=== PATIENT | male | born 1965 | race African-American/Black ===

== ENCOUNTER 2019-07-13 00:33 | Observation (INO) ==
--- OUTSIDE RECORDS SUMMARY | 2019-07-13 00:35 | External Medical Summary | Continuity of Care Document ---
:1965 Author Name Robert Vanessa Address Unavailable Unavailable , Care Team Providers Name Role Phone Unavailable Unavailable Unavailable [email or web address] [email or web address] Vanessa Unavailable [email or web address] Unavailable Unavailable Unavailable Unavailable Unavailable Problems Nasal congestion (478.19) (R09.81) Lower back pain (724.2) (M54.5) Acquired deviated nasal septum (470) (J34.2) Allergic rhinitis (477.9) (J30.9) Hypertrophy of nasal turbinates (478.0) (J34.3) Helicobacter pylori (H. pylori) infection (041.86) (A04.8) Encounter for screening colonoscopy (V76.51) (Z12.11) Renal insufficiency (593.9) (N28.9) Nephrectomy Left Lobato's esophagus (530.85) (K22.70) Gastroesophageal reflux disease (530.81) (K21.9) Chronic viral hepatitis C (070.54) (B18.2) Allergies and Adverse Reactions No Known Drug Allergies (Allergy) Medications raNITIdine HCl - 300 MG Oral Tablet; TAKE ONE TABLET B Y MOUTH TWICE DAILY Rasheeda Rice Start: 10-Jan-2016 Quantity: 60 Refills: 5 HYDROcodone-Acetaminophen 10-325 MG Oral Tablet; TAKE 1 TABLET Twice daily PRN OLIVA William Quantity: 60 Refills: 0 Cyclobenzaprine HCl - 10 MG Oral Tablet; TAKE 1 TABLET PRN OLIVA William Quantity: 30 Refills: 2 Viagra 100 MG Oral Tablet; TAKE ONE TABLET BY MOUTH NEEDED OLIVA William Start: 30-Jun-2011 Quantity: 18 Refills: 1 Procedures History of Nephrectomy Left Status: Comp leted Nephrectomy Left Immunizations Influenza On: 16-Apr-2012 11:25 Lot #: [id number], [employer]FI [employer] Family History Unknown Family Member Family history of Denial Of Any Significant Status: Active Comments: Family History Medical History Mother No pertinent family history (V49.89) (Z78.9) Status: Active Social History - Smoking Status Smoker. current status unknown Plan of Treatment Planned Observations Planned Goals not documented Results No Known Results Results not documented
--- OUTSIDE RECORDS SUMMARY | 2019-07-13 00:35 | External Medical Summary | Continuity of Care Document ---
:1965 Author Name Robert Vanessa Address Unavailable Unavailable , Care Team Providers Name Role Phone Unavailable Unavailable Unavailable Stewart BAPTISTE Unavailable [email or web address] Krystal Vanessa Unavailable [email or web address] Unavailable Unavailable Unavailable Unavailable Unavailable Problems Chronic viral hepatitis C (070.54) (B18.2) Gastroesophageal reflux disease (530.81) (K21.9) Lobato's esophagus (530.85) (K22.70) Nephrectomy Left Renal insufficiency (593.9) (N28.9) Encounter for screening colonoscopy (V76.51) (Z12.11) Hypertrophy of nasal turbinates (478.0) (J34.3) Allergic rhinitis (477.9) (J30.9) Acquired deviated nasal septum (470) (J34.2) Nasal congestion (478.19) (R09.81) Lower back pain (724.2) (M54.5) Helicobacter pylori (H. pylori) infection (041.86) (A04.8) Allergies and Adverse Reactions No Known Drug [...] Immunizations Influenza On: 16-Apr-2012 11:25 Lot #: [id number], SAN[employer]FI PA[employer]UR Family History Mother No pertinent family history (V49.89) (Z78.9) Status: Active Unknown Family Member Family history of Denial Of Any Significant Status: Active Comments: Family History Medical History Social History - Smoking Status Smoker. current status unknown Plan of Treatment Planned Observations Planned Goals not documented Results No Known Results Results not documented
[2019-07-13] MEDS ORDERED: SODIUM CHLORIDE 0.9% 1000ML 1,000 ML IV SCH ×2 (01:00→04:15)
--- NOTE | 2019-07-13 01:14 | Emergency Department Note ---
History of Present Illness General Chief complaint: Seizure Stated complaint: Possible seizure History of Present Illness Maximum Pain Intensity: 8 This 54-year-old presents to the ER complaining of syncope and possible seizure Location: Generalized Quality: Weak Severity: Moderate Duration: Tonight Timing: Patient was sitting at the table and next thing he knew he was on the gr ound Context: was concerned and brought him in Modifying factors: better with nothing; worse with nothing Patient states he has been weak all week he is also had a productive cough. Patient states he is healthy with no real medical problems. Patient states he was just sitting and next thing he knew he was on the ground. He does not recall the events. He complains of some headache and neck pain. Patient denies chest pain, dyspnea, abdominal pain, fever, chills, localized weakness. No history of seizures. No heart disease. I also spoke to the who states that patient collapsed on the ground from the chair and shook for a minute or 2 and then was confused for a few minutes. He was not incontinent. No known history of seizures. No alcohol or drug use. Home Medications Home Medications Medication Instructions Recorded Confirmed Type quetiapine 150 mg PO HS 07/13/19 07/13/19 History topiramate 50 mg PO BID 07/13/19 07/13/19 History Allergies Allergy/AdvReac Type Severity Reaction Status Date / Time No Known Allergies Allergy NONE Unverified 07/13/19 00:46 Past Med/Surg History Medical History (Updated 07/13/19 @ 04:13 by Ilan Car MD) Chronic kidney disease, stage III (moderate) Lumbar degenerative disc disease Social History Preferred Language: Malian Feels Safe at Home: Yes Smoking Status: Former smoker Review of Systems A total of 10 systems reviewed and were otherwise negative Physical Exam Vital Signs Vital Signs - 24 hr 07/13/19 00:35 07/13/19 01:02 07/13/19 01:35 Temperature 36.8 C Temperature Source Oral Pulse Rate 72 Pulse Rate [Apical] 63 Pulse Rhythm [Apical] Respiratory Rate 16 18 Respiratory Effort / Characteristics Non-Labored Spontaneous Respiratory Depth Normal Blood Pressure 131/84 Blood Pressure [Right Arm] 135/91 Blood Pressure Mean 99 Blood Pressure Mean [Right Arm] 105 Blood Pressure Position [Right Arm] Sitting Pulse Oximetry 97 98 96 Oxygen Delivery Method Room Air Room Air Room Air Sepsis Recent Fever Within 48 Hours No Sepsis New/Unexplained Change in Mental Status No Sepsis Action Taken by Nursing No Action Required 07/13/19 03:26 07/13/19 04:22 Temperature Temperature Source Pulse Rate 62 Pulse Rate [Apical] 72 Pulse Rhythm [Apical] Regular Respiratory Rate 18 18 Respiratory Effort / Characteristics Non-Labored Spontaneous Respiratory Depth Normal Blood Pressure 136/82 Blood Pressure [Right Arm] 138/95 Blood Pressure Mean Blood Pressure Mean [Right Arm] 109 Blood Pressure Position [Right Arm] Lying Pulse Oximetry 96 98 Oxygen Delivery Method Room Air Room Air Sepsis Recent Fever Within 48 Hours Sepsis New/Unexplained Change in Mental Status Sepsis Action Taken by Nursing VITALS: Vitals are noted on the nurse's note and reviewed by myself. Vital signs stable. GENERAL: Pleasant male, in no acute distress, nondiaphoretic, well-developed well-nourished. SKIN: The skin was without rashes, erythema, edema, or bruising. There is no tenting of the skin. Capillary reflex less than 2 seconds. HEAD: Normocephalic atraumatic. EARS: External auditory canals clear, tympanic membranes pearly [place] without erythema or effusion bilaterally. EYES: Pupils equal round and reactive to light and accommodation. Conjunctivae without injection, sclerae without icterus. Extraocular movements intact. NOSE: Patent, turbinates without inflammation or discharge. MOUTH: Mucous membranes moist. Pharynx without erythema or exudate. Uvula midline. Airway patent. Tongue does not deviate. NECK: Supple without nuchal rigidity. No lymphadenopathy. No thyromegaly. Cervical spine is nontender. No JVD. HEART: Regular rate and rhythm LUNGS: Clear to auscultation bilaterally without wheezes, rales or rhonchi. No retractions or accessory muscle use. ABDOMEN: Positive bowel sounds x 4. Normal tympanic percussion. Soft, nontender, without masses or organomegaly. Caal sign negative. No guarding or rebound tenderness. No CVA tenderness MUSCULOSKELETAL: No muscle atrophy, erythema, or edema noted. 5 out of 5 strength throughout NEURO: Patient was alert and oriented to person place and time. Normal sensa tion to light and sharp touch. No focal neurological deficits. Cranial nerves II through XII grossly intact. No pronator drift. Cerebellar exam intact. Course Administered Medications Discontinued Medications Sodium Chloride (Nss 1000ml) 1,000 mls @ 999 mls/hr IV .Q1H1M JAMIE Stop: 07/13/19 02:00 Last Infusion: 07/13/19 02:48 Dose: 0 mls/hr Documented by: [id number] Admin: 07/13/19 01:33 Dose: 999 mls/hr Documented by: [id number] Medical Decision Making Medical Records Attestation: I reviewed the patient's medical records. Home Medications Current Medication List: was personally reviewed by me Laboratory Data Attestation: I reviewed the patient's lab results. Result diagrams: 07/13/19 01:17 07/13/19 01:17 Lab Results 07/13/19 07/13/19 07/13/19 Range/Units 01:17 01:17 03:20 WBC 7.79 (4.8-10.8) K/uL RBC 4.36 L (4.7-6.1) M/uL Hgb 13.9 L (14.0-18.0) g/dL Hct 40.1 L (42-52) % MCV 92.0 (80-100) fL MCH 31.9 (25-34) pg MCHC 34.7 (32-36) g/dL RDW Std Deviation 45.8 (36.4-46.3) fL RDW Coeff of Akilah 13.6 (11.5-14.5) % Plt Count 235 (130-400) K/uL MPV 9.7 (7.4-10.4) fL Immature Gran % (Auto) 0.4 % Neut % (Auto) 46.2 % Lymph % (Auto) 40.8 % Crane % (Auto) 8.1 % Eos % (Auto) 4.1 % Baso % (Auto) 0.4 % Immature Gran # (Auto) 0.03 H (0.00-0.02) K/uL Neut # (Auto) 3.60 (1.4-6.5) K/uL Lymph # (Auto) 3.18 (1.2-3.4) K/uL Crane # (Auto) 0.63 H (0.11-0.59) K/uL Eos # (Auto) 0.32 (0-0.5) K/uL Baso # (Auto) 0.03 (0-0.2) K/uL Sodium 138 (136-145) mmol/L Potassium 3.8 (3.5-5.1) mmol/L Chloride 108 H (98-107) mmol/L Carbon Dioxide 26 (21-32) mmol/L Anion Gap 4.0 (3-11) BUN 22 H (7-18) mg/dl Creatinine 1.83 H (0.6-1.4) mg/dl Est Cr Clr Drug Dosing 58.7 ml/min Est GFR ( Amer) 47.1 Est GFR (Non-Af Amer) 40.6 BUN/Creatinine Ratio 11.9 (10-20) Glucose 102 H (70-99) mg/dl Calcium 8.7 (8.5-10.1) mg/dl Magnesium 2.1 (1.8-2.4) mg/dl Total Bilirubin 0.3 (0.2-1) mg/dl AST 22 (15-37) U/L ALT 38 (12-78) U/L Alkaline Phosphatase 91 (45-117) U/L Total Creatine Kinase 354 H (39-308) U/L Troponin I < 0.015 (0-0.045) ng/ml Total Protein 8.1 (6.4-8.2) gm/dl Albumin 3.5 (3.4-5.0) gm/dl Globulin 4.6 H (2.5-4.0) gm/dl Albumin/Globulin Ratio 0.8 L (0.9-2) Lipase 87 (73-393) U/L TSH 0.396 (0.300-4.500) uIu/ml Urine Color Yellow Urine Appearance Clear (Clear) Urine pH 5.5 (4.5-7.5) Ur Specific [place] 1.022 (1.000-1.030) Urine Protein 1+ H (Negative) Urine Glucose (UA) Negative (Negative) Urine Ketones Negative (Negative) Urine Blood Negative (Negative) Urine Nitrite Negative (Negative) Urine Bilirubin Negative (Negative) Urine Urobilinogen Negative (Negative) Ur Leukocyte Esterase Negative (Negative) Urine WBC (Auto) 1-5 (0-5) /hpf Urine RBC (Auto) 0-4 (0-4) /hpf U Hyaline Cast (Auto) 1-5 (0-5) /lpf U Epithel Cells (Auto) 5-10 H (0-5) /lpf Urine Bacteria (Auto) Negative (Negative) Imaging Data Attestation: I personally reviewed and interpreted this imaging study as follows: MDM Narrative Prior records/ancillary studies reviewed. Triage Nursing notes reviewed. Additional history obtained from family. The patient's history was concerning for syncope. Differential diagnosis: Etiologies such as vasovagal event, seizure, infection, hypoglycemia, electrolyte abnormalities, cardiac sources, intracerebral event, toxicologic, neurologic, as well as others were entertained. Physical examination: As above ER treatment provided: IV hydration with normal saline On reassessment the patient felt better. Diagnostics interpretation by me: ECG: Ordered for syncope EKG: Normal sinus, normal intervals, no acute ST-T wave changes. Impression normal sinus rhythm interpreted by myself I think arrhythmia is unlikely. EKG shows normal sinus rhythm with no interval abnormalities such as QT prolongation or WPW. There are no findings to suggest Brugada syndrome. Cardiac monitoring in the emergency department reveals no tachycardic or bradycardic dysrhythmia. Hypertrophic cardiomyopathy was considered but there are no clear historical elements pointing toward this. EKG is not suggestive. The QRS voltage is not extremely large and there are no suggestive Q waves. The labs revealed mild anemia, creatinine 1.8. Creatinine 2 years ago was 1.6. Negative troponin, euthyroid Imaging studies: CT C SPINE: FINDINGS: No fracture or subluxations are noted. The vertebral body heights, disc spaces and alignment are preserved. No prevertebral soft tissue swelling. Right upper lung posterior subpleural calcified granuloma. Tonsillar calcification from previous infections IMPRESSION: Normal CT scan of the cervical spine. Radiologist: Jayleen Rojas MD CT HEAD: FINDINGS: No intracranial hemorrhage, abnormal intra- or extra-axial collections or parenchymal lesions are seen. The shape and configuration of the cortical sulci, basal cisterns and ventricles are within normal limits. The dunn-white differentiation is preserved. No evidence of mass effect, midline shift, or edema. The osseous structures are unremarkable. Mild ethmoid mucosal thickening. IMPRESSION: Normal non-contrast CT scan of the head. Radiologist: Jayleen Rojas MD Consultation: A consultation was placed with Dr. Smith, hospitalist. The case was discussed and diagnostics were reviewed. The patient was evaluated in the ER for further treatment. This appears to be consistent with syncope with possible seizure. Patient had no prodromal symptoms. Medicine was consulted. No acute findings in the above work-up. By the evaluation outlined above emergent etiologies such as infection, hypoglycemia, electrolyte abnormalities, toxicologic, as well as others were deemed relatively unlikely. The pt informed about the findings as listed above. All questions were answered and pleased with the treatment. Case reviewed with my attending The chart was completed utilizing [employer] Speech voice recognition software. Grammatical errors, random word insertions, pronoun errors, and incomplete sentences are an occassional consequence of this system due to software limitations, ambient noise, and hardware issues. Any formal questions or concerns about the content, text, or information contained within the body of this dictation should be directly addressed to the physician occupational therapist's assistant for clarification. Impression & Plan Atypical syncope Discharge Plan Visit Data Chief Complaint: Seizure Stated Complaint: Possible seizure ED Provider: Nuvia Guzmán ED Midlevel Provider: Sherin Almeida Discharge Problem: Atypical syncope Patient Disposition: Being Evaluated by Hospitalist Condition: Good Discharge Instructions Interventions: ED Discharge Assessment Last Done: 07/13/19 04:22 Forms Stand Alone Forms: My [facility] [employer] Prescriptions Prescriptions: No Action quetiapine 100 mg tablet 150 mg PO HS RF: 0 topiramate 50 mg tablet 50 mg PO BID RF: 0 Referrals Referrals: Alvarado Rice MD [Primary Care Provider] -
[2019-07-13 01:26] LABS: Basophils # (auto) 0.03 K/uL (0-0.2); Basophils % (auto) 0.4 %; Eosinophils # (auto) 0.32 K/uL (0-0.5); Eosinophils % (auto) 4.1 %; Hematocrit (blood only) 40.1 % (42-52); Hemoglobin 13.9 g/dL (14.0-18.0); Immature Granulocytes # (auto) 0.03 K/uL (0.00-0.02); Immature Granulocytes % (auto) 0.4 %; Lymphocytes # (auto) 3.18 K/uL (1.2-3.4); Lymphocytes % (auto) 40.8 %; Mean Corpuscular Hemoglobin 31.9 pg (25-34); Mean Corpuscular Hgb Conc 34.7 g/dL (32-36); Mean Platelet Volume 9.7 fL (7.4-10.4); Monocytes # (auto) 0.63 K/uL (0.11-0.59); Monocytes % (auto) 8.1 %; Neutrophils % (auto) 46.2 %; Platelet Count 235 K/uL (130-400); RDW Coefficient of Variation 13.6 % (11.5-14.5); RDW Standard Deviation 45.8 fL (36.4-46.3); Red Blood Count 4.36 M/uL (4.7-6.1); White Blood Count 7.79 K/uL (4.8-10.8)
[2019-07-13 01:42] LABS: Alanine Aminotransferase 38 U/L (12-78); Albumin Level 3.5 gm/dl (3.4-5.0); Aspartate Aminotransferase 22 U/L (15-37); BUN Creatinine Ratio 11.9 (10-20); Blood Urea Nitrogen 22 mg/dl (7-18); Calcium 8.7 mg/dl (8.5-10.1); Carbon Dioxide 26 mmol/L (21-32); Chloride 108 mmol/L (98-107); Creatinine Clr Calc Pharmacy 58.7 ml/min; Est GFR (African American) 47.1; Est GFR (Non-African American) 40.6; Glucose 102 mg/dl (70-99); Lipase 87 U/L (73-393); Magnesium 2.1 mg/dl (1.8-2.4); Potassium 3.8 mmol/L (3.5-5.1); Sodium 138 mmol/L (136-145)
[2019-07-13 01:53] LABS: Albumin Globulin Ratio 0.8 (0.9-2); Alkaline Phosphatase 91 U/L (45-117); Bilirubin,Total 0.3 mg/dl (0.2-1); Creatine Kinase 354 U/L (39-308); Globulin 4.6 gm/dl (2.5-4.0); Thyroid Stimulating Hormone 0.396 uIu/ml (0.300-4.500); Total Protein 8.1 gm/dl (6.4-8.2); Troponin I < 0.015 ng/ml (0-0.045)
[2019-07-13 03:46] LABS: Appearance Urine Clear (Clear); Bacteria Urine Automated Negative (Negative); Bilirubin Urine Negative (Negative); Blood Urine Negative (Negative); Color Urine Yellow; Glucose Urine UA Negative (Negative); Ketones Urine Negative (Negative); Leukocyte Esterase Urine Negative (Negative); Nitrite Urine Negative (Negative); Protein Urine 1+ (Negative); RBC Urine Automated 0-4 /hpf (0-4); Specific Gravity Urine 1.022 (1.000-1.030); Urobilinogen Urine Negative (Negative); pH Urine 5.5 (4.5-7.5)
--- NOTE | 2019-07-13 04:19 | History & Physical Report ---
Date of Service July 13, 2019 Assessment & Plan (1) Syncope and collapse: Admit to monitored bed to follow for possible arrhythmia. CT of head was negative, CT cervical spine was negative, and chest x-ray is negative. We will order MRI brain without contrast. Order EEG. Order complete echocardiogram. Order neurochecks. Consult neurology Present on Admission?: Yes (2) GERD (gastroesophageal reflux disease): No recent symptoms, and on no meds at this time. Present on Admission?: Yes (3) Chronic kidney disease, stage III (moderate): No reference labs available. Patient upon admission had a creatinine 1.83. CK is mildly elevated at 354. May have a mild element of rhabdomyolysis, repeat laboratories prior to discharge Will hydrate gently with normal saline, and follow-up laboratories. He will follow-up with Dr. Rice from nephrology after discharge from hospital Present on Admission?: Yes (4) Lumbar degenerative disc disease: Lumbar degenerative disc disease with intermittent radiculopathy- Continue Topamax and Seroquel at outpatient doses. Present on Admission?: Yes History of Present Illness Chief Complaint: The patient presents to the emergency department after a syncopal episode while sitting at a stool while at home, his significant other reports that he was out for about 2 minutes, and when he awoke, it took several more minutes for him to become completely aware of his surroundings. He did not have loss of bowel or bladder control. Has not had previous occurrences of this. Primary Care Provider: Alvarado Rice MD The patient is a 54-year-old male with a past medical history including chronic kidney disease stage III, GERD, chronic back pain and neuropathy, who presents emergency department with the above complaint. He has not had any recent travels or sick exposures. He denies any recent change in activity pattern or sleep pattern. He denies any palpitations. Work-up in the emergency department included imaging studies with normal chest x-ray, normal CT of the head and normal CT of cervical spine. Allergies Allergy/AdvReac Type Severity Reaction Status Date / Time No Known Allergies Allergy NONE Unverified 07/13/19 00:46 Home Medications Home Medications Medication Instructions Recorded Confirmed Type quetiapine 150 mg PO HS 07/13/19 07/13/19 History topiramate 50 mg PO BID 07/13/19 07/13/19 History Past Med/Surg History Social History Preferred Language: Yakut Feels Safe at Home: Yes Smoking Status: Former smoker Review of Systems Review of Systems: The patient denies chest pain, palpitations, shortness of breath, dyspnea on exertion, cough, lower extremity swelling, sore throat, fevers, chills, sweats, nausea, vomiting, diarrhea , constipation, abdominal pain, pelvic pain, blood in urine or stool, dysuria, urinary frequency or urgency, rash, abnormal bruising or bleeding, imbalance, focal or generalized weakness, numbness or tingling in arms or legs, generalized arthralgias or myalgias, neck pain, or night sweats. The review of systems is otherwise negative other than for that already noted above, and at least 10 systems have been reviewed. Physical Exam Physical Exam: The patient is awake, alert and oriented 3, well developed and well nourished, normocephalic and atraumatic, lying in bed and in no acute distress. HEENT--PERRL, EOMI, mucous membranes and oropharynx normal. Neck--supple. No JVD. No bruits. Thyroid normal, trachea midline, no adenopathy. Heart--normal S1 and S2. No murmurs, rubs or gallops. Lungs--clear bilaterally, no respiratory distress, no accessory muscle use. Abdomen--normal bowel sounds and soft. Nontender. Nondistended. Obese. Extremities--no cyanosis or clubbing. No edema. There are good distal pulses b/l. Dermatologic--normal skin turgor, normal color, no abnormal lymph nodes, no rash. Neurologic--cranial nerves II through XII grossly intact. Rheumatologic--normal range of motion. Psychiatric--normal affect. Results & Data Vital Signs (Past 12 Hours) Vital Signs Temp Pulse Pulse Resp BP BP Pulse Ox 07/13/19 03:26 72 18 138/95 96 07/13/19 01:35 63 18 135/91 96 07/13/19 01:02 98 07/13/19 00:35 98.2 F 72 16 131/84 97 Laboratory Results Laboratory Results WBC 7.79 K/uL (4.8-10.8) 07/13/19 01:17 RBC 4.36 M/uL (4.7-6.1) L 07/13/19 01:17 Hgb 13.9 g/dL (14.0-18.0) L 07/13/19 01:17 Hct 40.1 % (42-52) L 07/13/19 01:17 MCV 92.0 fL (80-100) 07/13/19 01:17 MCH 31.9 pg (25-34) 07/13/19 01:17 MCHC 34.7 g/dL (32-36) 07/13/19 01:17 RDW Std Deviation 45.8 fL (36.4-46.3) 07/13/19 01:17 RDW Coeff of Akilah 13.6 % (11.5-14.5) 07/13/19 01:17 Plt Count 235 K/uL (130-400) 07/13/19 01:17 MPV 9.7 fL (7.4-10.4) 07/13/19 01:17 Immature Gran % (Auto) 0.4 % 07/13/19 01:17 Neut % (Auto) 46.2 % 07/13/19 01:17 Lymph % (Auto) 40.8 % 07/13/19 01:17 Cameron % (Auto) 8.1 % 07/13/19 01:17 Eos % (Auto) 4.1 % 07/13/19 01:17 Baso % (Auto) 0.4 % 07/13/19 01:17 Immature Gran # (Auto) 0.03 K/uL (0.00-0.02) H 07/13/19 01:17 Neut # (Auto) 3.60 K/uL (1.4-6.5) 07/13/19 01:17 Lymph # (Auto) 3.18 K/uL (1.2-3.4) 07/13/19 01:17 Cameron # (Auto) 0.63 K/uL (0.11-0.59) H 07/13/19 01:17 Eos # (Auto) 0.32 K/uL (0-0.5) 07/13/19 01:17 Baso # (Auto) 0.03 K/uL (0-0.2) 07/13/19 01:17 Sodium 138 mmol/L (136-145) 07/13/19 01:17 Potassium 3.8 mmol/L (3.5-5.1) 07/13/19 01:17 Chloride 108 mmol/L (98-107) H 07/13/19 01:17 Carbon Dioxide 26 mmol/L (21-32) 07/13/19 01:17 Anion Gap 4.0 (3-11) 07/13/19 01:17 BUN 22 mg/dl (7-18) H 07/13/19 01:17 Creatinine 1.83 mg/dl (0.6-1.4) H 07/13/19 01:17 Est Cr Clr Drug Dosing 58.7 ml/min 07/13/19 01:17 Est GFR ( Amer) 47.1 07/13/19 01:17 Est GFR (Non-Af Amer) 40.6 07/13/19 01:17 BUN/Creatinine Ratio 11.9 (10-20) 07/13/19 01:17 Glucose 102 mg/dl (70-99) H 07/13/19 01:17 Calcium 8.7 mg/dl (8.5-10.1) 07/13/19 01:17 Magnesium 2.1 mg/dl (1.8-2.4) 07/13/19 01:17 Total Bilirubin 0.3 mg/dl (0.2-1) 07/13/19 01:17 AST 22 U/L (15-37) 07/13/19 01:17 ALT 38 U/L (12-78) 07/13/19 01:17 Alkaline Phosphatase 91 U/L (45-117) 07/13/19 01:17 Total Creatine Kinase 354 U/L (39-308) H 07/13/19 01:17 Troponin I < 0.015 ng/ml (0-0.045) 07/13/19 01:17 Total Protein 8.1 gm/dl (6.4-8.2) 07/13/19 01:17 Albumin 3.5 gm/dl (3.4-5.0) 07/13/19 01:17 Globulin 4.6 gm/dl (2.5-4.0) H 07/13/19 01:17 Albumin/Globulin Ratio 0.8 (0.9-2) L 07/13/19 01:17 Lipase 87 U/L (73-393) 07/13/19 01:17 TSH 0.396 uIu/ml (0.300-4.500) 07/13/19 01:17 Urine Color Yellow 07/13/19 03:20 Urine Appearance Clear (Clear) 07/13/19 03:20 Urine pH 5.5 (4.5-7.5) 07/13/19 03:20 Ur Specific [place] 1.022 (1.000-1.030) 07/13/19 03:20 Urine Protein 1+ (Negative) H 07/13/19 03:20 Urine Glucose (UA) Negative (Negative) 07/13/19 03:20 Urine Ketones Negative (Negative) 07/13/19 03:20 Urine Blood Negative (Negative) 07/13/19 03:20 Urine Nitrite Negative (Negative) 07/13/19 03:20 Urine Bilirubin Negative (Negative) 07/13/19 03:20 Urine Urobilinogen Negative (Negative) 07/13/19 03:20 Ur Leukocyte Esterase Negative (Negative) 07/13/19 03:20 Urine WBC (Auto) 1-5 /hpf (0-5) 07/13/19 03:20 Urine RBC (Auto) 0-4 /hpf (0-4) 07/13/19 03:20 U Hyaline Cast (Auto) 1-5 /lpf (0-5) 07/13/19 03:20 U Epithel Cells (Auto) 5-10 /lpf (0-5) H 07/13/19 03:20 Urine Bacteria (Auto) Negative (Negative) 07/13/19 03:20 Code Status & VTE Plan Code Status Full code VTE Prophylaxis Plan VTE Prophylaxis will be ordered: Yes PG Care Time/CCT Total # of Minutes Spent Total Time Spent with Patient: Total time spent is greater than 50% in coordination of care (as documented) at patient's floor/unit and/or counseling patient:
[2019-07-13] MEDS ORDERED: MAGNESIUM HYDROXIDE SUSP 30 ML UDC PO PRN (05:02)
[2019-07-13] MEDS ORDERED: GLUCOSE 40% GEL 15 GM TUBE PO PRN (05:02)
[2019-07-13] MEDS ORDERED: DEXTROSE 50% 50 ML SYRINGE IV PRN (05:02)
[2019-07-13] MEDS ORDERED: ALUMINUM/MAGNESIUM SUSP 30 ML UDC PO PRN (05:02)
[2019-07-13] MEDS ORDERED: GLUCOSE 10 TABS/TUBE PO PRN (05:02)
[2019-07-13] MEDS ORDERED: ACETAMINOPHEN 325 MG TAB PO PRN (05:02)
[2019-07-13] MEDS ORDERED: GLUCAGON FOR INJ 1 MG VIAL SQ PRN (05:02)
[2019-07-13] MEDS ORDERED: ONDANSETRON INJ 2 MG/ML 2 ML VIAL IV PRN (05:02)
[2019-07-13] MEDS ORDERED: CARBOHYDRATES FOR HYPOGLYCEMIA PO PRN (05:02)
[2019-07-13 05:15] LABS: Lyme Ab IgG w/WB Rflx Negative (Negative); Lyme Ab IgM w/WB Rflx Negative (Negative)
[2019-07-13 06:14] LABS: BUN Creatinine Ratio 11.3 (10-20); Calcium 8.5 mg/dl (8.5-10.1); Creatinine Clr Calc Pharmacy 57.5 ml/min; Est GFR (African American) 46.2; Est GFR (Non-African American) 39.8; Potassium 3.8 mmol/L (3.5-5.1)
--- NOTE | 2019-07-13 06:46 | XRay Report ---
XR chest 1V portable HISTORY: 54 years-old Male cough acute cough with syncope COMPARISON: None available TECHNIQUE: Portable AP view of the chest FINDINGS: Cardiac silhouette is upper limits of normal in size. Mild right hemidiaphragmatic elevation. Bluntin g of the left costophrenic angle with mild subsegmental left basilar densities. No pneumothorax, over t pulmonary edema or lobar airspace consolidation. Degenerative changes of the shoulders and spine. IMPRESSION: 1. Mild left costophrenic angle blunting may be secondary to atelectasis versus trace effusion. 2. No airspace consolidation typical for pneumonia. ACT 112: Negative or not required by law. The above report was generated using voice recognition software. It may contain grammatical, syntax o r spelling errors. Electronically signed by: Francisco Johnson M.D. 07/13/2019 6:45 AM
--- NOTE | 2019-07-13 07:16 | CT Scan Report ---
CT head/brain wo con CLINICAL HISTORY: 54 years-old Male with syncope, ? sz. Acute syncope with possible seizure TECHNIQUE: Multiple axial CT images of the head were obtained without contrast. A dose lowering tech nique was utilized adhering to the principles of ALARA. CT DOSE: 1128.72 mGy.cm COMPARISON: Head CT 10/15/2009. FINDINGS: No acute intracranial hemorrhage, midline shift, intracranial mass, hydrocephalus, territorial ischem ia or abnormal extra-axial collection. The calvarium is intact. Mastoid air cells are generally clear. Mild mucosal thickening of the sphen oid sinuses with moderate ethmoid sinus disease. IMPRESSION: No acute intracranial abnormality. ACT 112: Negative or not required by law. The above report was generated using voice recognition software. It may contain grammatical, syntax o r spelling errors. Electronically signed by: Francisco Johnson M.D. 07/13/2019 7:15 AM
--- NOTE | 2019-07-13 07:39 | CT Scan Report ---
CT cervical spine wo con CLINICAL HISTORY: 54 years-old Male with syncope, pain. Acute neck injury with syncope COMPARISON: CT cervical spine 04/21/2016 TECHNIQUE: Multiple axial CT images of the cervical spine were obtained without contrast. A dose low ering technique was utilized adhering to the principles of ALARA. FINDINGS: Mild multilevel spondylitic spurring and facet arthrosis. No significant disc space narrowing, acute fracture or subluxation. Evaluation of the central canal and neuroforamina is better assessed by MRI. There is suggestion of mild multilevel foraminal narrowing. No high-grade central canal stenosis marcela ntified. No prevertebral soft tissue swelling. Lung apices are clear without pneumothorax. Mild subpl eural bleb formation of the right lung apex. Calcified granuloma of the right lung apex also noted. C alcifications of the palatine tonsils. Opacification of the imaged maxillary sinuses with mild spheno id and ethmoid sinus disease. IMPRESSION: No acute cervical spine fracture or subluxation. ACT 112: Negative or not required by law. The above report was generated using voice recognition software. It may contain grammatical, syntax o r spelling errors. Electronically signed by: Francisco Johnson M.D. 07/13/2019 7:38 AM
[2019-07-13] MEDS ORDERED: TOPIRAMATE 50 MG TAB PO SCH (09:00)
--- NOTE | 2019-07-13 10:17 | Magnetic Resonance Report ---
MR brain wo con HISTORY: 54 years-old Male syncope acute syncope with headache COMPARISON: Head CT 07/13/2019 TECHNIQUE: Multiplanar multisequence MRI of the brain was obtained without the use of IV contrast. FINDINGS: There is no restricted diffusion to suggest acute or subacute infarction. Midline structures includin g the corpus callosum, brainstem, optic chiasm, pituitary and pineal glands appear unremarkable on th e sagittal T1 series. No cerebellar tonsillar herniation. Degenerative changes are noted about the im aged cervical spine. Motion degraded exam. There is no acute intracranial hemorrhage, midline shift, abnormal extra-axial collections, hydroceph alus or intracranial mass. No acute seizure focus identified. No significant T2/FLAIR signal abnormal ities of the brain parenchyma. Near area of increased FLAIR signal involving the posterior left front al lobe on image 17 series 6 demonstrates normal signal on the T1 and T2 series, likely artifactual. Mesial temporal lobes are within normal limits bilaterally. There is no pathologic blooming artifact on the T2 star series. The major flow voids at the level of the skull base appear patent. Mastoid air cells are clear. Sever e mucosal thickening of the maxillary sinuses with air-fluid levels. Moderate mucosal thickening of t he ethmoid air cells least mild mucosal thickening of the sphenoid and frontal sinuses. Skull, orbits and soft tissues are within normal limits. IMPRESSION: 1. Motion degraded exam without acute intracranial abnormality identified. 2. Severe paranasal sinus disease as above with acute maxillary sinusitis. ACT 112: Negative or not required by law. The above report was generated using voice recognition software. It may contain grammatical, syntax o r spelling errors. Electronically signed by: Francisco Johnson M.D. 07/13/2019 10:16 AM
--- NOTE | 2019-07-13 11:34 | Electroencephalogram ---
EEG Procedure Note Date of Service July 13, 2019 Start / End Times Start Time: 10:57 AM End Time: 11:17 AM Referring Physician Ilan Car MD History Seizure-like episode, syncope Home Medication List Home Medications Medication Instructions Recorded Confirmed Type quetiapine 150 mg PO HS 07/13/19 07/13/19 History topiramate 50 mg PO BID 07/13/19 07/13/19 History Inpatient Medication List Sodium Chloride (Nss 1000ml) 1,000 mls @ 80 mls/hr IV .[id number] JAMIE Stop: 08/12/19 04:14 Last Admin: 07/13/19 05:15 Dose: 80 mls/hr Documented by: [id number] Topiramate (Topamax) 50 mg PO BID [facility] Stop: 08/12/19 08:59 Last Admin: 07/13/19 09:14 Dose: Not Given Documented by: [id number] Discontinued Medications Sodium Chloride (Nss 1000ml) 1,000 mls @ 999 mls/hr IV .[id number] JAMIE Stop: 07/13/19 02:00 Last Infusion: 07/13/19 02:48 Dose: 0 mls/hr Documented by: [id number] Admin: 07/13/19 01:33 Dose: 999 mls/hr Documented by: [id number] Description This is a 21 electrode EEG with a single channel dedicated to limited EKG. The electrodes were placed in accordance with the International 10-20 system. There is a posterior dominant rhythm of 10 Hz which is symmetrically distributed and attenuates with eye opening in the latter part of the study. (Patient refused to close his eyes for the majority of the test as indicated by the technologist.) There is periodic IV artifact. There is a symmetric frontal beta rhythm observed. There is no focal slowing. No epileptiform abnormalities appreciated. Sleep not achieved. Interpretation This is a normal-appearing awake/drowsy EEG demonstrating a normal background alpha rhythm. A normal EEG does not completely exclude a diagnosis of seizure disorder and further clinical correlation may be needed. [facility] EEG Procedure Codes Indication for Procedure (1) Seizure-like activity: (2) Syncope and collapse: Neurology Neurology: 30636 EEG include record awake & drowsy
--- NOTE | 2019-07-13 12:15 | Neurology Consultation ---
Date of Consultation July 13, 2019 Assessment & Plan (1) Syncope and collapse: I suspect this patient experienced an episode of tussive syncope. There is no supportive evidence of epilepsy or seizure disorder. No further neurologic work-up in this regard is necessary at this time. (2) Sinusitis: This patient's CT of the head and brain MRI both reveal findings suggestive of moderate to severe sinusitis. His persistent coughing is likely related to this issue. He may benefit from an empiric antibiotic and cough suppressant. These medications may also mitigate future episodes of tussive syncope. However, I would defer to the hospitalist service regarding the appropriateness of these medications as I do not typically treat sinusitis. (3) Mood disorder: This patient relays a history of mood disorder which was recently evaluated by an outpatient psychiatrist in [place]. He indicates that he was recently given prescriptions for both Seroquel and Topamax by his psychiatrist. However, he has not started either of these medications yet. He indicates that his mood has been stable. I do not have a specific recommendation regarding the ongoing management of this patient's mood. H owever, it does not appear as if starting or stopping either of these medications may been a factor in his recent seizure-like episode. He may want to wait until his sinusitis is treated properly prior to starting either of these medications and should also discuss the matter with his psychiatrist as an outpatient. I have no further immediate recommendations for this patient. Please contact me if I may be of further assistance. He should not require additional neurologic outpatient follow-up. History of Present Illness Reason for Consultation: Syncope, seizure-like activity Requesting Physician: Ilan Car MD Attending Physician: Derick Caballero DO History of Present Illness The patient is a 54-year-old male who was evaluated in the emergency department late last night after an episode of loss of consciousness with associated shaking of the limbs. The episode was witnessed by his spouse and had occurred at home while he was sitting at the table. He complains of a persistent productive cough which is been present for the past week. He indicates that he had been having an episode of significant coughing with associated dizziness/lightheadedness prior to his loss of consciousness. He apparently fell to the floor and exhibited generalized shaking for about 1 minute. There was no tongue bite or incontinence. No injuries. No known history of seizure disorder or substance abuse. The patient does recall having some episodes of near syncope/dizziness in the past, potentially associated with laughter. Other than the persistent cough, no other potential triggering symptoms or issues have been identified. The patient does appear to have a prescription for Seroquel and topiramate. These medications were prescribed by a psychiatrist for ma nagement of depression and anxiety according to the patient. Yet, he indicates that he just received these prescriptions and has not started them yet. He denies taking any other medications or other substances such as decongestants, antihistamines, alcohol, or marijuana. Past medical history notable for chronic kidney disease, GERD, and lumbar disc degeneration. He has previously followed with Dr. Rice but has not seen him in a few years. A CT of the head and cervical spine were completed during his assessment in the emergency department and were unremarkable. A follow-up brain MRI was completed as well which was also unremarkable. Imaging described in further detail below. Family history noncontributory Allergies Allergy/AdvReac Type Severity Reaction Status Date / Time No Known Allergies Allergy NONE Unverified 07/13/19 00:46 Home Medications Home Medications Medication Instructions Recorded Confirmed Type quetiapine 150 mg PO HS 07/13/19 07/13/19 History topiramate 50 mg PO BID 07/13/19 07/13/19 History Patient History Medical History (Updated 07/13/19 @ 12:12 by Sandro Moss MD) Chronic kidney disease, stage III (moderate) Lumbar degenerative disc disease Social History Preferred Language: Swiss Communication Ability: Effective Account Support Rep Required: No Beliefs That Will Affect Care: None Current Living Situation: Significant Other Feels Safe at Home: Yes Smoking Status: Never smoker Hx Alcohol Use: No Hx Substance Use: No Review of Systems Constitutional: no fever and no chills Eyes: no blind spots and no diplopia Ear, Nose, Mouth, Throat: no tinnitus and no hearing loss Respiratory: as per Subjective / HPI, + cough and + chest congestion Cardiovascular: no chest pain and no palpitations Gastrointestinal: + nausea; no vomiting Genitourinary: no urinary incontinence Musculoskeletal: + back pain; no myalgia Integumentary: no rash and no lesions Neurologic: as per Subjective / HPI; no localized weakness, no loss of sensation, no tremor(s), no confusion and no memory loss Psychiatric: no depression and no anxiety Hematologic / Lymphatic: no easy bleeding and no easy bruising Physical Exam Physical Exam: The patient is a well-developed, well-nourished adult male. He is alert and fully oriented. Recent and remote memory intact. Attention and concentration are normal. Patient exhibits a normal spontaneous speech pattern as well as an age-appropriate fund of knowledge and normal comprehension of vocabulary. Visual tierney full to confrontation. Visual acuity normal. Pupils equal round reactive to light and accommodation. Eye movements normal. There is no ptosis, nystagmus, or ophthalmoplegia. Facial sensation intact. There is no facial droop or weakness. Hearing intact. Palate elevates to midline. Shoulder shrug intact. Tongue protrudes to midline. Sensation intact all mo dalities in all 4 limbs. Deep tendon reflexes are intact and symmetrical for the arms and legs. Plantar responses downgoing bilaterally. There is no dysdiadochokinesia or dysmetria [id number] or siav-tr-pigg bilaterally. Ophthalmoscopic examination reveals normal-appearing optic disks and posterior segments. No papilledema or hemorrhages. Carotid pulses normal bilaterally, no bruits to auscultation. Gait and station normal. Patient exhibits normal muscle strength and tone for all 4 limbs. No atrophy. No abnormal movements observed. Results & Data Vital Signs (Past 12 Hours) Vital Signs Temp Pulse Pulse Resp BP BP Pulse Ox 07/13/19 11:36 36.9 C 58 L 18 149/93 H 96 07/13/19 10:13 64 07/13/19 07:35 36.8 C 64 18 139/89 97 07/13/19 05:15 36.6 C 66 16 168/98 H 94 07/13/19 04:22 62 18 136/82 98 07/13/19 03:26 72 18 138/95 96 07/13/19 01:35 63 18 135/91 96 07/13/19 01:02 98 07/13/19 00:35 36.8 C 72 16 131/84 97 Laboratory Results WBC 7.79, hemoglobin 13.9, hematocrit 40.1, platelet count 235, sodium 138, potassium 3.8, BUN 21, creatinine 1.86, glucose 178, calcium 8.5, magnesium 2.1, AST 22, ALT 38, total CK 308, troponin less than 0.015, TSH 0.396., Lyme antibody screening negative. Diagnostic Findings A CT of the head is negative for hemorrhage or acute process. There is mild mucosal thickening of the sphenoid sinuses and moderate thickening of the ethmoid sinuses. I reviewed the images as well as the radiologist's interpretation of this test. A CT of the neck is negative for acute spinal fracture or subluxation. There is no evidence of high-grade central canal stenosis. There is mild multilevel for mental narrowing. I reviewed the images as well as the radiologist's int erpretation of this test. A noncontrast MRI of the brain is negative for acute process. There is evidence of severe paranasal sinus disease with acute maxillary sinusitis. Mesial temporal lobes are within normal limits bilaterally. I reviewed the images as well as the radiologist interpretation of this test. Electrocardiogram reveals a normal sinus rhythm, 65 bpm. An EEG completed this morning reveals a normal background alpha rhythm, without evidence of epileptiform abnormalities.
--- NOTE | 2019-07-13 15:10 | Discharge Summary ---
Date of Service July 13, 2019 Admission HPI Per Admitting Provider The patient is a 54-year-old male with a past medical history including chronic kidney disease stage III, GERD, chronic back pain and neuropathy, who presents emergency department with the above complaint. He has not had any recent travels or sick exposures. He denies any recent change in activity pattern or sleep pattern. He denies any palpitations. Work-up in the emergency department included imaging studies with normal chest x-ray, normal CT of the head and normal CT of cervical spine. Principal Diagnosis Syncope Discharge Exam Constitutional WD/WN, vitals as above Eyes PERRL, conjunctivae normal, anicteric sclerae Respiratory normal respiratory effort, lungs clear to auscultation + cough Cardiovascular Rate/Rhythm: regular rate and regular rhythm Heart Sounds: normal S1 and normal S2; no gallop, no murmur and no cardiac rub Gastrointestinal (Abdomen) normal bowel sounds, soft, nontender, no hepatosplenomegaly Neurologic CN's II-XI intact bilaterally, normal sensation to monofilament, moves all extremities and awake; no focal motor deficits Discharge Data Allergies Allergy/AdvReac Type Severity Reaction Status Date / Time No Known Allergies Allergy NONE Unverified 07/13/19 00:46 Consultations 07/13/19 03:24 ED Decision to Admit Stat 07/13/19 04:21 Consult Neurology Routine Ordered Studies 07/13/19 00:55 CT cervical spine wo con Urgent 07/13/19 00:56 CT head/brain wo con Urgent 07/13/19 03:58 MR brain wo con Urgent Hospital Course (1) Syncope and collapse: 54 y/o M who presented after having a fall from a stool late at night during a prolonged coughing spell. Syncope: - likely secondary to vasovagal episode, given decreased oral intake - CT head negative - CT cervical spine negative - MRI head and neck negative - EEG negative for any seizure like activity - advised patient to increase oral intake to prevent further episodes (2) Sinusitis: Total Time Total Time Spent Total Time Spent (In Minutes): <30 Discharge Plan Discharge Items Patient Disposition: Home - Self-Care Reason For Visit: SYNCOPE Discharge Diagnosis: Vasovagal Syncope Condition on Discharge: Good Activity: Per Instructions section Non-emergency contact: Primary Care Provider Call non-emergency contact if: you have any medication questions and your symptoms worsen Follow-up/Referrals: Alvarado Rice MD [Primary Care Provider] - Diet: Carb Consistent or DM2 Addtl Attending Provider Instructions: You were admitted following having a fall off of a stool last night; prior to this fall it was noticed that you were having a consistent coughing fit and had not eaten much or drank much fluids throughout the day. When people have falls in similar fashions to what you had, we call these vasovagal syncopal events. This means that your body likely went into a "fight or flight" reflex while you were coughing, and over-corrected your blood pressure and heart rate during this time causing you to fall down. When this happens the largest concern is that someone hurts themselves during that fall, and as a result of this numerous tests were done to rule out any damage that could have been done or any other source for this fall. Having not seen any changes to the structure of your brain as a result of the fall, or any changes to the electrical activity of your brain, we feel confident at this time that this was most likely due to one of these vasovagal episodes. Now that you are going home, it is important while you are sick with a cough that you continue to maintain your hydration and the amount of food you eat in a given day. As similar episodes can recur if you are not appropriately hydrated or nutritionally supplied. It is important that you follow-up with your family doctor in the coming weeks for their continued care and attention to your on-going medical problems, and for them to address any questions that you have over medications. At this time we have made no changes to the medications that you take on a regular basis, but do advise that at the next three to four days you avoid taking the Viagra in order to limit the chance for you to have a similar fainting episodes. Pending Studies at Discharge: No Stand-Alone Forms: [facility] [email or web address], Smoking Cessation Medications and DC Order Prescriptions: Discontinued quetiapine 100 mg tablet 150 mg PO HS RF: 0 topiramate 50 mg tablet 50 mg PO BID RF: 0 Discharge Orders: Discharge Order (Routine); Ordered 07/13/19 Ordered By: Leo Hood Admission Data Admit Date/Time: 07/13/19 04:05 Attending Provider: Derick Caballero Admit Provider: Ilan Car Primary Care Provider: Alvarado Rice Other Providers: Sandro Moss ; Ilan Car Other Interventions: Discharge Summary Assessment (RN) Last Done: 07/13/19 14:58 DC Date/Time DO NOT enter until pt leaves facility: 07/13/19 15:35 Supervising Physician Co-Signing Physician Notes I personally examined the patient and verified all escudero points of history and exam, discussed case, and agree with decision making with Dr Hood. Feeling better, very much would like to go home. Reviewed probable cause of syncope, patient is reassured and feels okay. He notes that he was not eating or drinking at all yesterday because of indigestion. He relates this was because he stopped the Zantac after the recall. Requests refills on some sort of acid suppression medicine, his Viagra, and his Lortab. Discussed that we would definitely need to have the pain medicines filled through his PCP. Vitals noted, in general he is awake and alert pleasant no distress. HEENT normocephalic atraumatic mucous membranes moist. Breathing unlabored no accessory muscle use good effort. Skin shows no rashes no pallor or icterus. Neuro shows no focal deficits. Labs, diagnostics, and healthcare economics consultant input appreciated. Syncoperelated to coughing incident and dehydration. Secondary work-up extremely reassuring. Stable for home. CKD 3outpatient follow-up, encouraged to stay hydrated. GERDdiscussed switching from Zantac to an equivalent dose of Pepcid. Stable for home, PCP follow-up. Otherwise as above. Resident Activity Tracking Resident Involvement: Resident Care Provided Care Provided: Adult Hospital Medicine
--- NOTE | 2019-07-13 18:36 | Billing Data ---
Date of Service July 13, 2019 Coding Level of Care Code 63524 OBS Care - Discharge
[2019-07-13] MEDS ORDERED: QUETIAPINE FUMARATE 100 MG TABLET PO SCH (21:00)
== END 2019-07-13 15:35 | disposition home or self-care (01) ==
LOC: ED 00:33 → 2N 00:33 → SUATTDRO 04:05 → 2N 04:22

== ENCOUNTER 2025-05-27 00:56 | Inpatient (IN) ==
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
[2025-05-27] MEDS: MoRPHine SULFATE 4 MG/ML 1 ML CARP\\VIAL IV STA (01:54)
[2025-05-27] MEDS: DEXAMETHASONE SOD INJ 4 MG/ML VIAL IV STA (01:59)
[2025-05-27] MEDS: ACETAMINOPHEN 1,000 MG/100 ML VIAL IV STA (02:02)
[2025-05-27] MEDS: SODIUM CHLORIDE 0.9% 1,000 ML IV ONE (02:03)
[2025-05-27] MEDS: METHOCARBAMOL 500 MG TABLET PO ONE (02:12)
[2025-05-27 02:37] LABS: Hematocrit (blood only) 39.9 % (42.0-52.0); Hemoglobin 14.7 g/dL (14.0-18.0); Immature Granulocytes # (auto) 0.01 K/uL (0.01-0.20); Immature Granulocytes % (auto) 0.1 %; Mean Corpuscular Hemoglobin 32.7 pg (25.0-34.0); Mean Corpuscular Volume 88.9 fL (80.0-100.0); Platelet Count 249 K/uL (130-400); RDW Standard Deviation 42.1 fL (36.4-46.3); Red Blood Count 4.49 M/uL (4.70-6.10); White Blood Count 10.01 K/ul (4.8-10.8)
[2025-05-27] MEDS ORDERED: NALOXONE HCL 0.4 MG/1 ML VIAL/CARP IV PRN ×2 (02:54→14:29)
[2025-05-27] MEDS ORDERED: HYDROmorphone INJ 0.5 MG/0.5 ML SYR IV PRN (02:54)
[2025-05-27 02:55] LABS: Alanine Aminotransferase 17.0 U/L (7-52); Albumin Globulin Ratio 1.3 (0.9-2); Albumin Level 4.4 gm/dl (3.4-5.0); Alkaline Phosphatase 50.0 U/L (34-104); Anion Gap 9.0 (3-11); Bilirubin,Total 0.6 mg/dl (0.2-1.0); Blood Urea Nitrogen 16.0 mg/dl (6-23); Calcium 9.7 mg/dl (8.6-10.3); Carbon Dioxide 23.0 mmol/L (21-32); Chloride 103.0 mmol/L (98-107); Creatinine Clr Calc Pharmacy 57.3 ml/min; Globulin 3.5 gm/dl (2.5-4.0); Glucose 110.0 mg/dl (70-99(Fasting)); Potassium 3.6 mmol/L (3.5-5.1); Sodium 135.0 mmol/L (136-145); Total Protein 7.9 gm/dl (6.0-8.3)
[2025-05-27] MEDS: HYDROmorphone INJ 1 MG/ML SYRINGE IV PRN ×2 (03:13→22:24)
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
[2025-05-27] MEDS: LACTATED RINGER'S 1,000 ML IV SCH ×2 (03:32→15:32)
[2025-05-27 04:17] LABS: INR 1.0 (0.9-1.1); Partial Thromboplastin Time 29 Seconds (21-31); Prothrombin Time 10.9 Seconds (9.0-12.0)
[2025-05-27] MEDS ORDERED: ONDANSETRON INJ 2 MG/ML 2 ML VIAL IV PRN ×2 (04:35→14:29)
[2025-05-27] MEDS: HYDROmorphone INJ 1 MG/ML SYRINGE IV STA (06:13)
[2025-05-27] MEDS: GABAPENTIN 600 MG DOSE PO SCH (07:45)
[2025-05-27] MEDS: ACETAMINOPHEN 500 MG TAB PO SCH (07:46)
[2025-05-27] MEDS: CeleBREX 200 MG CAP PO SCH (07:46)
--- NOTE | 2025-05-27 07:46 | History & Physical Bridge Note ---
Date of Service May 27, 2025 History & Physical Bridge Note I have examined the patient, reviewed the History & Physical and in the interval since the performance of the History & Physical I have noted the following changes of clinical significance: no changes noted Patient has continued cervical radiculopathy and is here for anterior cervical discectomy and fusion C5-C7
[2025-05-27] MEDS: LR 15ML/HR IV SCH (07:48)
--- NOTE | 2025-05-27 08:17 | History & Physical Bridge Note ---
Date of Service May 27, 2025 History & Physical Bridge Note I have examined the patient, reviewed the History & Physical and in the interval since the performance of the History & Physical I have noted the following changes of clinical significance: no changes noted please note the consent form sent from the office was missed labeled. The actual procedures anterior cervical discectomy fusion C4-C6. This was reviewed with the patient and family. This is consistent with office notes and imaging.
[2025-05-27] MEDS: FLOSEAL HEMOSTATIC MATRIX 10ML TOP ONE (08:33)
[2025-05-27] MEDS: ceFAZolin 330 MG/ML 1 GM VIAL IR ONE (08:35)
--- NOTE | 2025-05-27 09:31 | Operative Report ---
Post Operative Report Pre & Post Diagnosis Operation Date: 05/27/25 07:45 Pre-Op Diagnosis: Cervical spondylosis with radiculopathy Post-Op Diagnosis: Same I identified the patient and participated in the time-out.: Yes Procedure Operation Date: 05/27/25 07:45 Actual Procedures #1 anterior cervical discectomy with bilateral foraminotomies C4-C5 C5-C6. #2 anterior cervical arthrodesis C4-C5 C5-C6. #3 placement Spira 8 mm cage at C4- C5 and 10 mm cage at C5-C6. #4 application of K2 M plate and screws from C4-C6. Surgeon Guevara Caal, Dairy Processing Equipment Operator Tracy Sequeira Estimated Blood Loss 10 Findings Consistent with Post-Op Diagnosis Specimens None Indications This is a 60-year-old male who presents above-mentioned diagnosis after failing course of nonoperative care is here for the above-mentioned procedure. Description of Procedure Patient was met with identified informed consent obtained. Patient was then taken to the operative suite underwent intubation placed in a supine position on the Kaleb table with a [place] wellhead pumper. All bony promises well-padded eyes inspected to ensure no external pressure placed upon them. This point the anterior cervical spine was prepped and draped normal sterile fashion. With the assistance of fluoroscopy identified the C5 vertebral body and a transverse incision was placed along the right anterior aspect of the cervical spine overlying his region. Blunt dissection with the assistance of bipolar cautery was then performed down to and exposing anterior cervical spine from C4-C6. Complete self-retaining retractors placed. Then performed a complete discectomy C4-C5 out to the uncovertebral joints bilaterally. [place] distracting pins utilized to assist in visualization. I removed all posterior annular fibers longitudinal ligament bilateral foraminotomies performed. Endplates burred to subcortical bleeding bone and an 8 mm Spira cage filled with os design bone graft tapped into position. Then proceeded to see 5 C6. Again complete discectomy performed out to the uncovertebral joints bilaterally. [place]bury distr action pins again utilized. Removed all posterior annular fibers longitudinal ligament bilateral foraminotomies performed. Endplates burred to subcortical bleeding bone and a 10 mm Spira cage filled with os design bone graft tapped in position. Distracting apparatus was removed. All anterior osteophytes burred to smooth cortical surface and K2 M plate and screws applied with the assistance of fluoroscopy. Incision was then copiously irrigated explored to ensure no damage to surrounding structures remaining bleeding. 10 round SANCHO drain inserted. The incision was then closed with 2-0 Vicryl in the fascia and a 4 Monocryl for final skin closure. Steri-Strips and sterile dressing placed. Patient waken taken recovery stable condition. Please note Tracy Sequeira was present of the entire procedure involved in patient positioning complex portion of the surgery and final skin closure. I attest to the content of the Intraoperative Record and any orders documented therein. Any exceptions are noted below.
--- NOTE | 2025-05-27 10:25 | Anesthesiology Progress Note ---
Date of Service May 27, 2025 Anesthesia Post Procedure Vital Signs Vital Signs: Temp Pulse Pulse Resp BP BP Pulse Ox 05/27/25 09:40 36 C L 71 10 L 131/110 H 100 05/27/25 07:09 37 C 68 20 149/71 H 98 05/27/25 06:45 60 05/27/25 05:42 60 05/27/25 04:35 36.7 C 61 18 171/84 H 98 05/27/25 03:00 60 16 126/73 96 05/27/25 02:42 63 05/27/25 01:08 36.5 C 62 16 135/86 99 O2 Del Method O2 Flow Rate 05/27/25 09:40 Oxymask 9 05/27/25 07:09 Room Air 05/27/25 06:45 05/27/25 05:42 05/27/25 04:35 Room Air 05/27/25 03:00 Room Air 05/27/25 02:42 05/27/25 01:08 Room Air Pain Intensity Left Leg: Pain Intensity: 8 Transfer of Care Handoff Completed per policy Notes Mental Status: alert / awake / arousable Patient Amnestic to Procedure: Yes Nausea / Vomiting: adequately controlled Pain: adequately controlled Airway Patency, RR, SpO2: stable & adequate BP & HR: stable & adequate Hydration State: stable & adequate Anesthetic Complications: no major complications apparent
[2025-05-27] MEDS ORDERED: ALUMINUM/MAGNESIUM SUSP 30 ML UDC PO PRN (14:29)
[2025-05-27] MEDS ORDERED: PROMETHAZINE 12.5 MG/50.5 ML BAG IV PRN (14:29)
[2025-05-27] MEDS ORDERED: SOD PHOSPHATE/SOD BIPHOSPHATE ENEMA 132 ML BTL PR PRN (14:29)
[2025-05-27] MEDS ORDERED: DO NOT ADMINISTER FLU VACCINE PRN (14:29)
[2025-05-27] MEDS ORDERED: MAGNESIUM HYDROXIDE SUSP 30 ML UDC PO PRN (14:29)
[2025-05-27] MEDS ORDERED: METOCLOPRAMIDE HCL INJ 5 MG/ML 2 ML VIAL IV PRN (14:29)
[2025-05-27] MEDS ORDERED: dexAMETHasone 8 MG in SYRINGE 0 ML IV PRN (14:29)
[2025-05-27] MEDS ORDERED: LORazepam 0.5 MG TAB PO PRN (14:29)
[2025-05-27] MEDS ORDERED: ONDANSETRON 4 MG OD TAB PO PRN (14:29)
[2025-05-27] MEDS ORDERED: ACETAMINOPHEN 1,000 MG/100 ML VIAL IV PRN (14:29)
[2025-05-27] MEDS ORDERED: LORazepam Inj 0.5 MG in SYRINGE 0.25 ML IV PRN (14:29)
[2025-05-27] MEDS ORDERED: FAMOTIDINE 20 MG TAB PO PRN (14:29)
[2025-05-27] MEDS ORDERED: RACEPINEPHRINE 2.25% NEBU SOLN 0.5 ML VIAL INH PRN (14:29)
[2025-05-27] MEDS ORDERED: DO NOT ADMINISTER PNEUMOCOCCAL VACCINE PRN (14:29)
[2025-05-27] MEDS ORDERED: diphenhydrAMINE Capsule 25 MG CAP PO PRN (14:29)
[2025-05-27] MEDS: dexAMETHasone 6 MG in SYRINGE 0 ML IV SCH ×2 (15:31→16:15)
[2025-05-27] MEDS: LR 60ML/HR IV SCH (15:31)
[2025-05-27] MEDS: FLUTICASONE PROPIONATE NA SPR 16 GM BTL NAE SCH (15:32)
[2025-05-27] MEDS: PANTOprazole 40 MG/10 ML SYR IV SCH (15:32)
[2025-05-27] MEDS: HYDROmorphone INJ 0.5 MG/0.5 ML SYR IV PRN (18:27)
[2025-05-27] MEDS: FAMOTIDINE 20 MG TAB PO SCH (20:41)
[2025-05-27] MEDS: DOCUSATE SODIUM/SENNA 50/8.6MG TAB PO SCH (20:41)
--- NOTE | 2025-05-27 21:39 | Communication Note ---
Date of Service: May 27, 2025 Patient seen and examined post operatively but admitted to the same day therefore I will not be billing for this encounter. Prescribed his usual pantopr azole and famotidine. Leg pain and weakness improved post operatively. Reports he is doing well.
[2025-05-28 06:16] LABS: Hematocrit (blood only) 35.7 % (42.0-52.0); Hemoglobin 13.0 g/dL (14.0-18.0); Immature Granulocytes # (auto) 0.14 K/uL (0.01-0.20); Immature Granulocytes % (auto) 0.8 %; Mean Corpuscular Hemoglobin 32.3 pg (25.0-34.0); Mean Corpuscular Volume 88.6 fL (80.0-100.0); Platelet Count 218 K/uL (130-400); RDW Standard Deviation 42.1 fL (36.4-46.3); Red Blood Count 4.03 M/uL (4.70-6.10); White Blood Count 17.31 K/ul (4.8-10.8)
[2025-05-28] MEDS: POLYETHYLENE (MIRALAX) 17 GM PACK PO SCH (06:24)
[2025-05-28 06:38] LABS: Alanine Aminotransferase 11.0 U/L (7-52); Albumin Globulin Ratio 1.4 (0.9-2); Albumin Level 4.2 gm/dl (3.4-5.0); Alkaline Phosphatase 45.0 U/L (34-104); Anion Gap 7.0 (3-11); Bilirubin,Total 0.5 mg/dl (0.2-1.0); Blood Urea Nitrogen 22.0 mg/dl (6-23); Calcium 9.1 mg/dl (8.6-10.3); Carbon Dioxide 25.0 mmol/L (21-32); Chloride 105.0 mmol/L (98-107); Creatinine Clr Calc Pharmacy 58.1 ml/min; Globulin 3.0 gm/dl (2.5-4.0); Glucose 137.0 mg/dl (70-99(Fasting)); Magnesium 2.0 mg/dl (1.7-2.4); Potassium 4.1 mmol/L (3.5-5.1); Sodium 137.0 mmol/L (136-145); Total Protein 7.2 gm/dl (6.0-8.3)
[2025-05-28 07:02] LABS: INR 1.0 (0.9-1.1); Partial Thromboplastin Time 27 Seconds (21-31); Prothrombin Time 10.8 Seconds (9.0-12.0)
--- NOTE | 2025-05-28 10:25 | Orthopedic Progress Note ---
Date of Service May 28, 2025 Assessment & Plan (1) Cervical spondylosis: Plan: Patient is status post ACDF. He is doing well. In light of his left leg pain we will initiate a course of physical therapy and obtain an MRI lumbar spine for further anatomic detail. Pending these results we would hopefully be able to discharge home with outpatient care. Admission and Anticipated Discharge Date Admission Date: May 27, 2025 Subjective Patient's arm symptoms are markedly improved. He has no hoarseness. No swallowing difficulties. He is continues to complain of severe left leg pain worse with standing and walking. Physical Exam Physical Exam: Patient is currently in bed. Is extracted testing upper extremities. Dressing and drain are intact. There is no appreciable swelling to the cervical spine. Results & Data Vital Signs (Past 12 Hours) Vital Signs Temp Pulse Resp BP Pulse Ox O2 Del Method 05/28/25 08:05 36.8 C 58 L 16 146/77 H 98 Room Air 05/28/25 07:09 58 L 16 96 Room Air 05/28/25 06:00 36.8 C 59 L 16 123/72 95 Room Air 05/28/25 04:00 36.6 C 58 L 16 121/75 96 Room Air 05/28/25 02:17 51 L 17 97 Room Air 05/28/25 02:00 36.8 C 59 L 16 125/63 96 Room Air 05/28/25 00:00 36.8 C 56 L 16 108/56 L 97 Room Air 05/27/25 22:43 64 18 96 Room Air
--- NOTE | 2025-05-28 19:47 | Magnetic Resonance Report ---
INDICATION: Left leg numbness COMPARISON: CAT scan 05/25/2025 FINDINGS: CONUS MEDULLARIS: Unremarkable terminating at appropriate level. PARASPINAL AREA: No paraspinal mass or adenopathy. Left kidney not visualized BONES: No acute fracture or subluxation. No aggressive bony lesions. OTHER: Unremarkable. LUMBAR DISC LEVELS: At the L1-L2 level, there isfacet hypertrophy, worse on the right than the left. Mild right foraminal narrowing. No significant canal stenosis. At the L2-L3 level, there is facet hypertrophy. No significant canal stenosis or foraminal narrowing. At the L3-L4 level, there is minimal disc bulging. Moderate facet hypertrophy. There is mild right foraminal narrowing. No significant canal stenosis. At the L4-L5 level, there is moderate facet hypertrophy.No significant canal stenosis or foraminal narrowing. At the L5-S1 level, there is moderate to large disc herniation More prominent to the left of midline. The disc herniation is compressing the left S1 nerve root. Moderate facet hypertrophy. Moderate left foraminal narrowing. Mild right foraminal narrowing. IMPRESSION: Asymmetric disc herniation at L5-S1 more prominent on the left of midline compressing the left S1 nerve root. Additional degenerative changes as above. Electronically signed by Rei Patel 05-28-2025 7:46 PM
--- NOTE | 2025-05-28 22:11 | Hospitalist Progress Note ---
Date of Service May 28, 2025 Assessment & Plan (1) Low back pain radiating to left leg: (2) C7 radiculopathy: (3) Chronic kidney disease, stage 3: (4) Barretts esophagus: Plan The patient is a 60-year-old male with past medical history including cervical degenerative disc disease, C7 radiculopathy, GERD, right and left shoulder impingement syndrome, AC joint arthritis, hypertension, CKD stage III, hypertension, Lobato's esophagus, GERD, and chronic low back pain. He was scheduled undergo cervical spine surgery by Dr. Caal in the a.m. on 05/27, however, he had presented to the emergency department on 05/25 due to worsening of his chronic low back pain, and an increase in left lower extremity radicular pain. #Cervical spondylosis with radiculopathy- s/p ACDF Weakness appears significant improved follow surgery Disposition on discretion from ortho spine #Left lumbar radiculopathy Lumbar spine MRI ordered by orthopedics Management per ortho spine CKD stage III At baseline GERD/Lobato's esophagus- Continue famotidine + pantoprazole home med list Hypertension- Hold olmesartan VTE Prophylaxis - per ortho spine post operatively Disposition - per ortho spine Admission and Anticipated Discharge Date Admission Date: May 27, 2025 Subjective Ongoing pain going down back and lateral side of left leg present prior to the operation but overall doing better and walking around better. Physical Exam Neurologic: moves all extremities and awake; no focal motor deficits and not confused Results & Data Results & Data Vital Signs (Past 12 Hours) Vital Signs Temp Pulse Resp BP Pulse Ox O2 Del Method 05/28/25 16:08 36.9 C 50 L 18 120/72 05/28/25 15:27 60 15 98 Room Air 05/28/25 11:38 36.7 C 49 L 18 135/77 96 Room Air 05/28/25 10:41 51 L 99 Room Air PG Care Time/CCT Total # of Minutes Spent Total Time Spent with Patient: Total time spent is greater than 50% in coordination of care (as documented) at patient's floor/unit and/or counseling patient: Coding Level of Care Code 74908 SUB INP/OBS CARE 2/35MIN Diagnoses Low back pain radiating to left leg M54.50; M79.605 C7 radiculopathy M54.12 Chronic kidney disease, stage 3 N18.30 Barretts esophagus K22.70
[2025-05-29 06:43] LABS: Hematocrit (blood only) 36.7 % (42.0-52.0); Hemoglobin 13.5 g/dL (14.0-18.0); Immature Granulocytes # (auto) 0.05 K/uL (0.01-0.20); Immature Granulocytes % (auto) 0.4 %; Mean Corpuscular Hemoglobin 32.5 pg (25.0-34.0); Mean Corpuscular Volume 88.4 fL (80.0-100.0); Platelet Count 223 K/uL (130-400); RDW Standard Deviation 42.8 fL (36.4-46.3); Red Blood Count 4.15 M/uL (4.70-6.10); White Blood Count 14.09 K/ul (4.8-10.8)
[2025-05-29 07:08] LABS: INR 1.0 (0.9-1.1); Partial Thromboplastin Time 25 Seconds (21-31); Prothrombin Time 10.3 Seconds (9.0-12.0)
[2025-05-29 07:25] LABS: Albumin Level 4.1 gm/dl (3.4-5.0); Alkaline Phosphatase 48.0 U/L (34-104); Anion Gap 9.0 (3-11); Bilirubin,Total 0.5 mg/dl (0.2-1.0); Blood Urea Nitrogen 30.0 mg/dl (6-23); Chloride 102.0 mmol/L (98-107); Creatinine Clr Calc Pharmacy 55.8 ml/min; Magnesium 2.1 mg/dl (1.7-2.4); Potassium 3.8 mmol/L (3.5-5.1)
[2025-05-29 07:35] LABS: Alanine Aminotransferase 12.0 U/L (7-52); Albumin Globulin Ratio 1.4 (0.9-2); Calcium 9.4 mg/dl (8.6-10.3); Carbon Dioxide 26.0 mmol/L (21-32); Globulin 3.0 gm/dl (2.5-4.0); Glucose 109.0 mg/dl (70-99(Fasting)); Sodium 137.0 mmol/L (136-145); Total Protein 7.1 gm/dl (6.0-8.3)
[2025-05-29 08:06] VITALS: BP 122/69; TEMP 98.6
--- NOTE | 2025-05-29 08:35 | Electrocardiogram Report ---
Test Reason : Blood Pressure : */* mmHG Vent. Rate : 60 BPM Atrial Rate : 60 BPM P-R Int : 114 ms QRS Dur : 84 ms QT Int : 412 ms P-R-T Axes : 38 70 43 degrees QTcB Int : 412 ms Normal sinus rhythm Normal ECG When compared with ECG of 12-May-2025 09:36, T wave inversion no longer evident in Inferior leads Confirmed by Alex Granda ([id number]) on 05/29/2025 8:35:13 AM Referred By: REFERRED SELF Confirmed By: Alex Granda
[2025-05-29] MEDS: ACETAMINOPHEN 500 MG TAB PO PRN (09:05)
--- NOTE | 2025-05-29 10:00 | Discharge Summary ---
Date of Service May 29, 2025 Admission HPI Per Admitting Provider The patient is a 60-year-old male with past medical history including cervical degenerative disc disease, C7 radiculopathy, GERD, right and left shoulder impingement syndrome, AC joint arthritis, hypertension, CKD stage III, hypertension, Lobato's esophagus, GERD, and chronic low back pain. He was scheduled undergo cervical spine surgery by Dr. Caal in the a.m. on 05/27, however, he had presented to the emergency department on 05/25 due to worsening of his chronic low back pain, and an increase in left lower extremity radicular pain. 05/[address] of the lumbar spine which showed L5-S1 facet arthropathy, and moderate bilateral foraminal narrowing. He also had left lower extremity venous Doppler was negative for DVT. He presents to the emergency department again the evening of 05/26 with worsening of the low back pain and left lower extremity radiculopathy. He had CBC with differential and chemistry profile which showed no significant changes compared to previous. From the ED he was given Tylenol 1 g IV, dexamethasone 10 mg IV, methocarbamol 500 mg p.o., and morphine 4 mg IV. He reported continued unimproved pain, and was then [facility] At this time, low back pain and left lower extremity radicular pain was the primary emphasis of his visit. Principal Diagnosis Cervical spondylosis with radiculopathy Discharge Data Allergies Allergy/AdvReac Type Severity Reaction Status Date / Time No Known Allergies Allergy Verified 05/27/25 01:43 Consultations 05/27/25 02:10 ED Decision to Admit Stat 05/27/25 03:36 Consult Orthopedic Spine Surgery Routine 05/29/25 07:49 Consult Pain Management Routine Procedures Performed Operation Date: 05/27/25 07:45 Actual Procedures p C5-C7 Anterior Cervical Discectomy Fusion(Not Applicable) - Guevara Caal DO Ordered Studies 05/28/25 10:23 MR lumbar spine wo con Urgent Hospital Course (1) Low back pain radiating to left leg: Patient underwent anterior cervical discectomy fusion trial as well as taken the orthopedic for postoperative posterior bleed he is swallowing well. No hoarseness. Arm symptoms improved. Struggling with significant left sciatica. MRI obtained demonstrates disc nation L5-S1 left. We are arranging for an outpatient epidural injection. Patient understands agrees. Will discharge home today. Discharge orders instructions from the chart for further review. Total Time Total Time Spent Total Time Spent (In Minutes): 20 minutes Discharge Plan Discharge Items Patient Disposition: Home - Self-Care Reason For Visit: INTRACTABLE LBP, LLE RADICULOPATHY Discharge Diagnosis: Cervical spondylosis with radiculopathy Condition on Discharge: Fair Activity: As commented below Non-emergency contact: Primary Care Provider Call non-emergency contact if: you have any medication questions Follow-up/Referrals: Dav Montemayor MD [Primary Care Provider] - Diet: Regular Addtl Attending Provider Instructions: ACTIVITY RECOMMENDATIONS: SELF CARE INSTRUCTIONS AFTER CERVICAL FUSIONS 1. No smoking. Smoking drastically decreases the chance of a solid fusion. 2. No bending, lifting more than 5 pounds, or twisting (roll like a log when turning in bed). 3. You may shower 3 days after surgery. Thoroughly dry wound. Do not soak in the tub. 4. Cervical collar: Must be worn at all times including sleeping. You may remove the brace only to bath, eat and if you are sitting in a recliner. 5. Please walk as much as you can for exercise. Gradually increase the distance that you walk as your endurance increases. 6. You may return to previous diet. SPECIAL CARE INSTRUCTIONS: VERY IMPORTANT TO READ AND REVIEW A. Do not take any anti-inflammatory medications (i.e. Indocin, Advil, Aspirin, Naprosyn, Aleve, Motrin, etc.) as these may inhibit the chance of a solid fusion. Tylenol is okay to take. B. Your surgical incision has been closed with a cosmetic suture under the skin that will dissolve in about 6 weeks. In 14 days, you can use a pair of clean scissors and cut the suture that is left outside of the skin at the ends of your incision. C. Complications are uncommon, but please contact us if you have any signs or symptoms of: 1. wound infection (fever higher than 102.5 degrees F, redness, separation of wound, drainage, or increasing pain from the incision) 2. blood clots in legs (pain, swelling, redness and warmth in legs) 3. urinary tract infection (fever higher than 102.5 degrees, burning upon urination or increased frequency of urination) 4. nerve problems (inability to walk on your toes or heels, numbness, loss of bowel or bladder control) 5. any other symptoms that concern you. D. Please call the office at if you have any concerns or questions about your operation or recovery. MANAGING PAIN AFTER SPINAL SURGERY 1. Narcotic medication is intended for short-term use and will be provided for surgical pain. Surgical pain usually lasts for a period of 4-6 weeks. Narcotic medication includes Percocet, Vicodin, Darvocet, Tylenol #3 or Lortab. 2. Longer-term pain is more appropriately treated with non-narcotic medication such as Tylenol ES. 3. Muscle spasm is not appropriately treated with narcotics. Muscle relaxers such as Soma, Flexeril or Skelaxin can be used along with Tylenol ES. 4. Remember that we all live with some "aches and pains". This is not unusual or uncommon after an injury or as we get older. 5. We will provide appropriate medication within the normal guidelines of their prescribed use. We will also be very cautious and aware of potential abuse and extended duration of patients' medication needs. 6. Please allow 2-3 days to process refills. Prescriptions will not be mailed but must be picked up at the office. FOLLOW UP VISIT: Keep your scheduled follow-up appointment. Any questions, please call the office at . Pending Studies at Discharge: No Stand-Alone Forms: My [facility] [employer], Smoking Cessation Medications and DC Order Prescriptions: New oxycodone 5 mg tablet 5 mg PO Q6H PRN (Reason: pain) Qty: 30 0RF Continued medical THC 1 inh inhalation HS PRN (Reason: Pain) Rx Instructions: flower; at bedtime diclofenac sodium 1 % gel 2 g topical QID PRN (Reason: Pain) Qty: 100 3RF Rx Instructions: apply to right neck twice per day as needed fluticasone propionate [Flonase Allergy Relief] 50 mcg/actuation spray,suspension 1 spray INTNAS QAM Qty: 16 1RF Rx Instructions: 1 nasal spray per nostril. olmesartan 20 mg tablet 20 mg PO HS Qty: 90 3RF cyclobenzaprine 10 mg tablet 10 mg PO HS PRN (Reason: muscle spasm) Qty: 20 0RF hydrocodone-acetaminophen 10-325 mg tablet 1 tab PO BID PRN (Reason: Pain) Qty: 75 0RF Hold Instructions: due for refill on 10/16/19- 90tab takes BID Rx Instructions: maximum use twice daily with extra 1/2 tablet once daily if needed for breatkthrough pain Ongoing therapy Supervising physician Dav Montemayor MD [facility] [id number] pantoprazole 40 mg tablet,delayed release (DR/EC) 40 mg PO BID 90 Days Qty: 180 3RF famotidine [Pepcid] 40 mg tablet 40 mg PO BID 90 Days Qty: 180 3RF ketoconazole 2 % cream 1 applic topical DAILY Qty: 30 0RF Centrum 18-400 mg-mcg Tablet 1 tab PO DAILY sildenafil 100 mg tablet 100 mg PO DAILY PRN (Reason: Sexual Activity) cholecalciferol (vitamin D3) [Vitamin D3] 10 mcg (400 unit) Tablet 10 mcg PO DAILY triamcinolone acetonide 0.1 % cream 1 applic topical BID PRN (Reason: Skin Irritation) Rx Instructions: Apply to effected areas twice daily. Discharge Orders: Discharge Order (Routine); Ordered 05/29/25 Ordered By: Guevara Caal Admission Data Admit Date/Time: 05/27/25 03:16 Attending Provider: Alvarado German Admit Provider: Ilan Car Primary Care Provider: Dav Montemayor Other Providers: Ilan Car; Guevara Caal; Laurence Alonzo
[2025-05-29 11:20] VITALS: PULSE 62; RESP 16; O2SAT 98
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
== END 2025-05-29 12:51 | disposition home or self-care (01) | DRG 473 ==
LOC: ED 00:56 → SUATTDRO 03:16 → 2N 03:16 → PACUINP 13:01 → 3E 14:34